=== PATIENT | female | born 1985 ===

== ENCOUNTER 2017-09-19 09:12 | Day surgery (SDC) | payer OTHER ==
[2017-09-19] MEDS ORDERED: Lidocaine/Epinephrine 1% 1:100000 10 ML IJ ONE ×2 (09:55→10:23)
[2017-09-19] MEDS ORDERED: Bupivacaine 0.25% 20 ML INJ IJ ONE (09:56)
[2017-09-19] MEDS ORDERED: ceFAZolin 1 gm in NS 1 GM/100 ML BAG IVPB ONE (09:56)
[2017-09-19] MEDS ORDERED: Midazolam 2 MG/2 ML VIAL ONE (10:16)
[2017-09-19] MEDS ORDERED: Propofol 10 mg/ml Inj (20 ML) ONE (10:16)
[2017-09-19] MEDS ORDERED: ceFAZolin IV 1 gm in Dextrose 0 GM/0 ML BAG IVPB ONE (10:22)
[2017-09-19] MEDS ORDERED: ceFAZolin IV 2 gm in Dextrose 0 GM/0 ML BAG IVPB ONE (10:23)
[2017-09-19] MEDS ORDERED: HYDROmorphone 0.5 mg/0.5 ml ISec IVP PRN (11:24)
--- NOTE | 2017-09-19 11:28 | PCM.SURG1 ---
Surgeon's Initial Post Op Note - Surgeon's Notes Surgeon: Dr. Cash Acting Teacher: Dr. Rebolledo PGY3, [place] Type of Anesthesia: General LMA Pre-Operative Diagnosis: lipoma of left thigh Operative Findings: see operative report Post-Operative Diagnosis: see operative report Operation Performed: excision of lipoma left thigh Specimen/Specimens Removed: lipoma Estimated Blood Loss: EBL {In ML}: 10 Blood Products Given: N/A Drains Used: No Drains Post-Op Condition: Good Date of Surgery/Procedure: 09/19/17 Time of Surgery/Procedure: 10:45
[2017-09-19] MEDS ORDERED: Oxycodone/Acetaminophen 5/325 mg Tab PO PRN (11:29)
[2017-09-19 13:12] VITALS: RESP 16
[2017-09-19 14:05] VITALS: BP 109/64; PULSE 78; TEMP 98.2; O2SAT 98
--- NOTE | 2017-09-19 23:21 | OP ---
PROCEDURE DATE: 09/19/2017 PREOPERATIVE DIAGNOSIS: Lipoma of the left upper thigh, approximately 3 cm size. POSTOPERATIVE DIAGNOSIS: Lipoma of the left upper thigh, approximately 3 x 4 cm size. PROCEDURES DONE: 1. Excision of lipoma of the left upper thigh, 3 x 4 cm size. 2. Layered closure of the wound 3 x 4 x 3 cm size. SURGEON: Rosalio Cash MD DRUG AND ALCOHOL TREATMENT SPECIALIST: Renato Rebolledo DO, PGY3 resident. ANESTHESIA: General endotracheal tube anesthesia. ESTIMATED BLOOD LOSS: Around 10 mL. DRAIN: None. PATHOLOGY: Lipoma of the left upper thigh was sent for pathology. COMPLICATIONS: None. INTRAOPERATIVE FINDINGS: The patient had lipoma of the left upper thigh,approximately 3 x 4 x 3 cm size. DESCRIPTION OF PROCEDURE: On intraoperative steps, this 32-year-old female was diagnosed with a lipoma of the left upper thigh, and the patient was consented for the excision of the lipoma. Was brought to the OR, placed supine on operating table. After induction of the anesthesia, the left upper thigh was prepped and draped in the usual sterile fashion. An elliptical incision was made. After incising the skin and subcutaneous tissue, upper and lower flaps were crated. The dissection was carried down deep upto the muscles and the fascia, and lipoma was completely excised. It was sent off the table for pathology. Hemostasis was achieved. The wound was irrigated, and the wound was closed in multiple layers. The deep subcu with 3-0 Vicryl, superficial subcu with 3-0 Vicryl, skin with 4-0 Monocryl, and dry sterile dressing was applied. The patient tolerated the procedure well. Count of instruments and gauze was correct. There was no apparent complication. The patient was reversed from anesthesia and sent to the postanesthesia care unit in stable condition. Rosalio Cash MD
== END 2017-09-19 14:07 | disposition home or self-care (01) ==
LOC: C.SDS 09:12 → MERGE 09:12 → C.SDS 14:07
PROVIDERS: ATTEND Surgery Surgical Critical Care
DX: D17.24 Benign lipomatous neoplasm of skin and subcutaneous tissue of left leg (principal)
CPT/HCPCS: 11404; 12032; 88304; J0690; J1100; J2001; J2250; J2405; J2704; J2765; J3010